=== PATIENT | female | born 1995 | race African-American/Black ===

== ENCOUNTER 2016-10-21 19:02 | Emergency (ER) | payer OTHER ==
[~2016-10-21] VITALS: Ht 157.5 cm; Wt 75.0 kg
[2016-10-21 19:04] VITALS: BP 127/75; PULSE 79; RESP 14; TEMP 98.2; O2SAT 98
[2016-10-21] MEDS ORDERED: IBUP800T23 PO (19:48)
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
[2016-10-21] MEDS ORDERED: IBUPROFEN 800 MG TAB PO ONE (20:00)
== END 2016-10-21 20:25 | disposition home or self-care (01) ==
LOC: NEPB 19:02
DX: S16.1XXA Strain of muscle, fascia and tendon at neck level, initial encounter (principal); R51 Headache; V49.49XA Driver injured in collision with other motor vehicles in traffic accident, initial encounter; Y93.89 Activity, other specified; Y92.410 Unspecified street and highway as the place of occurrence of the external cause
CPT/HCPCS: 99283